=== PATIENT | female | born 1960 ===

== ENCOUNTER 2016-11-12 08:20 | Day surgery (SDC) | payer MEDICARE, OTHER ==
[2016-08-06 07:43] VITALS: BMI 42.5
[2016-11-12] MEDS ORDERED: Lactated Ringer's 500 ML IV ONE (10:31)
[2016-11-12] MEDS ORDERED: Propofol 10 mg/ml Inj (20 ML) ONE (10:33)
[2016-11-12] MEDS ORDERED: Lidocaine Hydrochloride 5 ML INJ ONE (10:33)
--- NOTE | 2016-11-12 10:40 | CP.SDSHP ---
Same Day Surgery H & P - History Proposed Procedure: Colonoscopy Pre-Op Diagnosis: Anemia, undetermined cause - Previous Medical/Surgical History Cardiac: Hypertension Endocrine/Metabolic: Other (Hyperlipidemia. Depression. Psych) Previous Surgical History: Appendectomy. Cholecystectomy - Allergies Allergies: Allergies aspirin Allergy (Verified 11/12/16 09:28) ITCHING - Current Medications Current Medications: reviewed, per reconciliation - Physical Exam General Appearance: wdwn nad Vital Signs: reviewed, per RN notes Neuro: WNL Heart: WNL Lungs: WNL GI: WNL - {Optional Preform as Required} Abdomen: WNL - Impression Impression: Anemia, unexplained Pt. Evaluated Today:Candidate for Anesthesia & Procedure: Yes - Date & Time Date: 11/12/16 Time: 10:40 Short Stay Discharge - Short Stay Discharge Admitting Diagnosis/Reason for Visit: ANEMIA, UNSPECIFIED Disposition: HOME/ ROUTINE
[2016-11-12 16:13] VITALS: RESP 15
[2016-11-12 16:20] VITALS: BP 147/65; PULSE 60; TEMP 98; O2SAT 99
== END 2016-11-12 12:15 | disposition home or self-care (01) ==
LOC: C.ENDO 08:20
PROVIDERS: ATTEND Internal Medicine Gastroenterology
DX: D12.3 Benign neoplasm of transverse colon (principal); D12.5 Benign neoplasm of sigmoid colon; K64.1 Second degree hemorrhoids; D17.5 Benign lipomatous neoplasm of intra-abdominal organs; K57.30 Diverticulosis of large intestine without perforation or abscess without bleeding; D64.9 Anemia, unspecified; I10 Essential (primary) hypertension
CPT/HCPCS: 45385; 88305; J2704; J7120

== ENCOUNTER 2018-12-03 07:45 | Outpatient (CLI) | payer MEDICARE, OTHER | END 2018-12-03 07:46 | disposition home or self-care (01) | LOC: C.CARD 07:45 | DX: R06.02 Shortness of breath (principal); I10 Essential (primary) hypertension ==